=== PATIENT | female | born 1955 | race Caucasian/White ===

== ENCOUNTER 2017-10-29 13:16 | Day surgery (SDC) | END 2017-10-29 17:35 | disposition home or self-care (01) ==

== ENCOUNTER 2018-10-28 05:48 | Inpatient (IN) | payer OTHER ==
[2018-10-20 11:37] VITALS: Ht 162.6 cm; Wt 81.9 kg
[~2018-10-28] VITALS: Ht 162.6 cm; Wt 81.9 kg
[2018-10-28] VITALS (27 sets, daily range): BP systolic 119–144; BP diastolic 61–80; PULSE 74–88; RESP 17–26
--- NOTE | 2018-10-28 05:43 | HPN ---
Date/Time of Note Date/Time of Note DATE: 10/28/18 TIME: 05:43 Interval H&P Admission Note Pt. seen H&P reviewed: No system changes SANDY SOLANO MD Oct 28, 2018 05:43
--- NOTE | 2018-10-28 05:45 | OPR ---
Date/Time of Note Date/Time of Note DATE: 10/28/18 TIME: 05:43 Operative Report Procedure Date: Oct 28, 2018 Preoperative Diagnosis Right hip primary arthritis Postoperative Diagnosis Right hip primary arthritis Operation/Procedure Performed 1. Right total hip arthroplasty 2. Injection of PRP Surgeon see signature line [employer] Officer None Anesthesia Type: general Estimated Blood Loss: 250 - 300 ml's Transfusion none Specimen None Grafts/Implants See op note Complications none Pt Condition Post Procedure: stable Disposition: PACU Procedure Description PROCEDURE IN DETAIL: Following the administration of general endotracheal anesth esia supplemented with a spinal anesthetic, the patient was placed in the supine position. The antecubital fossa on the right was prepped and 60 cc of blood were aspirated. Under sterile conditions, the blood was passed off to the product representative from the company who prepared the PRP solution. The right lower extremity was then prepped and draped in the usual sterile fashion. A pharmacy buyer radiograph was obtained for preliminary limb length and femoral size as well as acetabular size. A lateral incision was then made exposing the tensor fascia the fascia was incised the tensor was retracted laterally and the vessels were cauterized. The anterior capsule was then identified and prepared. A capsulectomy was then performed and the femoral head was then evaluated. Severe arthritic changes were noted. A femoral head cut was then made in the appropriate degree of version and inclination. The acetabulum was then exposed and a capsulectomy and labrectomy were completed. The central portion was then entered and serially reamed up to the 47 mm size. A Depuy [employer] cup which was 48 mm, with a standard liner was then fit into position with solid fixation. A 30 mm screw was used for additional fixation. Attention was then directed to the femur, the femur was exposed and prepared. The canal was entered and serially reamed up to the size 2. The femoral canal was then thoroughly irrigated and the PRP solution was then instilled into the femoral canal. A size 2 Depuy Actis stem was then inserted with solid fixation. A 32 mm, +1.5 mm femoral head, which was ceramic was then inserted. The leg was taken through full range of motion with no evident instability. In addition, radiographs revealed excellent position with reproduction of the limb lengths within a millimeter. The wound was irrigated thoroughly. The wound was then closed in layers and a Prenio for the final cover. This was watertight. Estimated blood loss was procedure was 300 cc. Postoperative radiographs will be obtained in the recovery room. SANDY SOLANO MD Oct 28, 2018 05:45
[~2018-10-28 05:48] MED LIST: ACET500C5 PO; ASPIRIN; CYCL5TAB PO; DICLOFENAC PO; LISINOPRIL PO
[2018-10-28] MEDS ORDERED: DEXAMETHASONE 1 MG TAB PO SCH ×2 (06:33→07:30)
[2018-10-28] MEDS ORDERED: GABAPENTIN 300 MG CAP PO SCH ×3 (06:34→21:00)
[2018-10-28] MEDS ORDERED: LISI-313 PO (06:53)
[2018-10-28] MEDS ORDERED: DICL75TA2 PO (06:53)
[2018-10-28] MEDS ORDERED: CA CHLORIDE 10% 10 ML SYRINGE ONE (06:54)
[2018-10-28] MEDS ORDERED: ACET-141 PO (06:54)
[2018-10-28] MEDS ORDERED: THROMBIN (BOVINE) 5,000 UNIT VIAL TP ONE (06:54)
[2018-10-28] MEDS ORDERED: CYCL10TA7 PO (06:54)
--- NOTE | 2018-10-28 06:59 | PREAC ---
Date/Time of Note Date/Time of Note DATE: 10/28/18 TIME: 06:58 Anesthesia Eval and Record Evaluation Time Pre-Procedure Interview DATE: 10/28/18 TIME: 06:58 Age 63 Sex female NPO: 8 hrs Preoperative diagnosis RIGHT HIP PRIMARY OA Planned procedure RIGHT TIFFANY Past Medical History Past Medical History: Includes Cardio: HTN GI: Obesity Surgery & Anesthesia Issues No known issue Meds Anticoagulation: No Beta Remington within 24 hr: No Reason Beta Remington not given: Pt. not on B-Remington Reported Medications Cyclobenzaprine Hcl* (Cyclobenzaprine Hcl*) 10 Mg Tablet, 10 MG PO QHS PRN for MUSCLE SPASMS, #60 TAB 10/28/18 Acetaminophen* (Acetaminophen*) 500 MG Extra Strength Tablet, 500 MG PO DAILY PRN for PAIN AND OR ELEVATED TEMP, TAB 10/28/18 Diclofenac Sodium* (Diclofenac Sodium*) 75 Mg Tablet.dr, 75 MG PO BID, #60 TAB 10/28/18 Lisinopril* (Lisinopril*) 5 Mg Tablet, 5 MG PO DAILY, #30 TAB 10/28/18 Discontinued Reported Medications Acetaminophen* (Tylophen*) 500 Mg Capsule, 500 MG PO Q6H PRN for PAIN, TAB 10/20/18 Cyclobenzaprine Hcl* (Cyclobenzaprine Hcl*) 5 Mg Tablet, 5 MG PO TID, #90 TAB 10/20/18 [Aspirin] No Conflict Check 10/29/17 [Diclofenac] No Conflict Check, 75 MG PO 10/29/17 [Lisinopril] No Conflict Check, 2.5 MG PO DAILY 10/29/17 Current Medications Cefazolin Sodium/ Dextrose 50 ml @ 100 mls/hr PRE-OP IVPB ; Start 10/28/18 at 07:30; Stop 10/28/18 at 16:00 Tranexamic Acid 100 ml @ 200 mls/hr Pre-op IVPB ; Start 10/28/18 at 07:30; Stop 10/28/18 at 16:00 Sodium Chloride/ Tranexamic Acid INTRA-OP IRR ; Start 10/28/18 at 07:30; Stop 10/28/18 at 16:00 Bupivacaine HCl/ Morphine Sulfate/ Epinephrine/ Ketorolac Tromethamine/ Clonidine/Sodium Chloride/ Vancomycin HCl INTRA-OP IRR ; Start 10/28/18 at 07:30; Stop 10/28/18 at 16:00 Gabapentin (Neurontin) 300 mg ONCE PO Last administered on 10/28/18at 06:39; Admin Dose 300 MG; Start 10/28/18 at 06:34; Stop 10/28/18 at 07:20 Meds reviewed: Yes Allergies Coded Allergies: No Known Allergy (Unverified , 10/28/18) Allergies Reviewed: Yes Labs/Studies Labs Reviewed: Reviewed by anesthesiologist test: N/A Studies: ECG (NL), CXR (NAPD) Pre-procedure Exam Last vitals Vital Signs Date Temp Pulse Resp B/P (MAP) Pulse Ox O2 O2 Flow FiO2 Time Delivery Rate 10/28/18 97.6 76 18 144/80 97 Room Air 06:42 (101) Airway: Adequate mouth opening, Adequate thyromental dist Mallampati: Mallampati II Teeth: Normal Lung: Normal Heart: Normal ASA Physical Status ASA physical status: 2 Emergency: None Planned Anesthetic General/MAC: ETT Neuraxial: Spinal Planned Pain Management Sub-arachniod narcotics, Parenteral pain med Pre-operative Attestations Prior to commencing anesthesia and surgery, the patient was re-evaluated, there was verification of: *The patient's identity *The results of appropriate recent lab work and preoperative vital signs *The above evaluation not changing prior to induction *Anesthetic plan, risk benefits, alternative and complications discussed with patient/family; questions answered; patient/family understands, accepts and wishes to proceed. Bridger Cervantes M.D. Oct 28, 2018 06:59
[2018-10-28] MEDS ORDERED: HYDROmorphONE 1 MG/5 ML IV SYRINGE IV PRN ×3 (07:00)
[2018-10-28] MEDS ORDERED: LABETALOL HCL 20MG INJ IV PRN (07:00)
[2018-10-28] MEDS ORDERED: TRIMETHOBENZAMIDE 100 MG/ML VIAL IM PRN (07:00)
[2018-10-28] MEDS ORDERED: ONDANSETRON 4 MG INJ IV PRN ×2 (07:00→09:00)
[2018-10-28] MEDS ORDERED: OXYCODONE/ACETAMINOPHEN (5/325) TAB PO PRN ×2 (07:00)
[2018-10-28] MEDS ORDERED: FENTAnyl 50 MCG/ML VIAL IV PRN ×3 (07:00)
[2018-10-28] MEDS ORDERED: MEPERIDINE 25 MG INJ IV PRN (07:00)
[2018-10-28] MEDS ORDERED: MIDAZOLAM 1 MG/ML 2 ML INJ IV PRN (07:00)
[2018-10-28] MEDS ORDERED: ALBUTEROL 0.083% (NEB) 2.5 MG/3 ML AMP HHN PRN (07:00)
[2018-10-28] MEDS ORDERED: DIPHENHYDRAMINE 50 MG INJ IV PRN ×2 (07:00→09:00)
[2018-10-28] MEDS ORDERED: IPRATROPIUM (NEB) 0.5 MG/2.5 ML AMP HHN PRN (07:00)
[2018-10-28] MEDS ORDERED: EPHEDrine SULFATE 50 MG/5 ML SYG IV PRN (07:00)
[2018-10-28] MEDS ORDERED: hydrALAzine 20 MG INJ IV PRN (07:00)
[2018-10-28] MEDS ORDERED: ONDANSETRON 4 MG INJ ONE (07:01)
[2018-10-28] MEDS ORDERED: PROPOFOL 20 ML ONE (07:01)
[2018-10-28] MEDS ORDERED: FENTAnyl 50 MCG/ML VIAL ONE ×2 (07:01→08:14)
[2018-10-28] MEDS ORDERED: CEFAZOLIN 1 GM INJ ONE (07:01)
[2018-10-28] MEDS ORDERED: GLYCOPYRROLATE 0.4 MG INJ ONE (07:01)
[2018-10-28] MEDS ORDERED: MIDAZOLAM 1 MG/ML 2 ML INJ ONE (07:01)
[2018-10-28] MEDS ORDERED: DEXAMETHASONE 4 MG/ML 5 ML INJ ONE (07:01)
[2018-10-28] MEDS ORDERED: ROCURONIUM 50 MG INJ ONE (07:01)
[2018-10-28] MEDS ORDERED: morphine SULFATE/PF (10 MG/10 ML) INJ ONE (07:02)
[2018-10-28] MEDS ORDERED: CEFAZOLIN 2 GM/50 ML (PMX) 50 ML IVPB SCH (07:30)
[2018-10-28] MEDS ORDERED: SOD CHLORIDE 0.9% 100 ML, TRANEXAMIC ACID 3,000 MG IRR SCH ×2 (07:30)
[2018-10-28] MEDS ORDERED: BUPIVACAINE 0.5% (SDV) 30 ML, morphine SULFATE (PF) 8 MG, EPINEPHrine 0.3 MG, KETOROLAC... IRR SCH ×7 (07:30)
[2018-10-28] MEDS: TRANEXAMIC ACID 1GM/100ML(PMX) 100 ML IVPB SCH ×2 (08:22→08:47)
[2018-10-28] MEDS ORDERED: MAGNESIUM HYDROXIDE 30ML CUP PO PRN (09:00)
[2018-10-28] MEDS ORDERED: CYCLOBENZAPRINE 10 MG TAB PO PRN (09:00)
[2018-10-28] MEDS ORDERED: NACL 0.9% 3 ML SYG IV SCH (09:00)
[2018-10-28] MEDS ORDERED: CEFAZOLIN 1 GM/50 ML (PMX) 50 ML IVPB SCH (09:00)
[2018-10-28] MEDS ORDERED: oxyCODONE 5 MG TAB PO PRN ×3 (09:00)
[2018-10-28] MEDS ORDERED: HYDROmorphONE 1 MG/ML SYG IV PRN (09:00)
[2018-10-28] MEDS ORDERED: ZOLPIDEM 5 MG TAB PO PRN (09:00)
--- NOTE | 2018-10-28 09:00 | PDOCDIS ---
Discharge Instructions DIAGNOSIS Discharge Diagnosis Hip arthritis CONDITION [id number] Patient Condition: [id number] Good HOME CARE INSTRUCTIONS: [id number] Diet Instructions: [id number] Regular ACTIVITY: [id number] Activity Restrictions: [id number] Slowly Increase Activity Keep Limb Elevated [id number] Bathing Restrictions: [id number] Shower FOLLOW UP/APPOINTMENTS Follow-up Plan 2 weeks SCHOOL/WORK RELEASE May return to School/Work with: With Restrictions School/Work Release Comment: No hip extension for 3 months SANDY SOLANO MD Oct 28, 2018 09:00
--- NOTE | 2018-10-28 09:16 | PAC ---
Date/Time of Note Date/Time of Note DATE: 10/28/18 TIME: 09:16 Post-Anesthesia Notes Post-Anesthesia Note Last documented vital signs Vital Signs Date Temp Pulse Resp B/P (MAP) Pulse Ox O2 O2 Flow FiO2 Time Delivery Rate 10/28/18B 97.6 76 18 144/80 97 Room Air 09:16 (101) Activity: WNL Respiratory function: WNL Cardiovascular function: WNL Mental status: Baseline Pain reasonably controlled: Yes Hydration appropriate: Yes Nausea/Vomiting absent: Yes Bridger Cervantes M.D. Oct 28, 2018 09:16
[2018-10-28] MEDS: ACETAMINOPHEN 1000MG/100ML IV 100 ML IVPB SCH ×3 (09:57→23:59)
[2018-10-28] MEDS: LISINOPRIL 5 MG TAB PO SCH (09:58)
[2018-10-28] MEDS: SENNA/DOCUSATE NA (8.6MG/50MG) TAB PO SCH ×2 (09:58→20:29)
[2018-10-28] MEDS: LACTATED RINGER'S 1,000 ML IV SCH ×2 (11:01→14:12)
[2018-10-28] MEDS: DEXAMETHASONE 2 MG TAB PO SCH ×3 (12:00→23:58)
[2018-10-28] MEDS: CEFAZOLIN 1 GM/50 ML (PMX) 50 ML IVPB SCH ×2 (15:51→23:58)
[2018-10-29] MEDS: LACTATED RINGER'S 1,000 ML IV SCH ×2 (00:50→14:57)
[2018-10-29 02:32] VITALS: BP 101/58; PULSE 88; RESP 19
[2018-10-29] MEDS: CEFAZOLIN 1 GM/50 ML (PMX) 50 ML IVPB SCH (05:34)
[2018-10-29] MEDS: DEXAMETHASONE 2 MG TAB PO SCH (05:35)
--- NOTE | 2018-10-29 05:38 | PN ---
Date/Time of Note Date/Time of Note DATE: 10/29/18 TIME: 05:38 Subjective Awake and alert with minimal pain this morning Objective Vitals Vital Signs Date Temp Pulse Resp B/P (MAP) Pulse Ox O2 O2 Flow FiO2 Time Delivery Rate 10/29/18 98.4 88 19 101/58 100 02:32 (72) 10/28/18 Nasal 2.0 14:00 Cannula Intake and Output 10/28/18 10/28/18 10/29/18 1515:00 23:00 07:00 IntakeIntake Total 2660 ml 450 ml 850 ml OutputOutput Total 600 ml 1000 ml BalanceBalance 2060 ml -550 ml 850 ml Wound is clean and dry. She is neurologically intact. There are no signs of DVT. Results Result Diagram: 10/28/18 09 Medications Medications Current Medications Cyclobenzaprine HCl (Flexeril) 10 mg QHS PRN PO MUSCLE SPASMS; Start 10/28/18 at 09:00 Lisinopril (Zestril) 5 mg DAILY PO Last administered on 10/28/18at 09:58; Admin Dose 5 MG; Start 10/28/18 at 09:00 Lactated Ringer's 1,000 ml @ 100 mls/hr Q10H IV Last administered on 10/29/18at 00:50; Admin Dose 100 MLS/HR; Start 10/28/18 at 08:57 Senna/Docusate Sodium (Senokot-S) 1 tab BID PO Last administered on 10/28/18at 20:29; Admin Dose 1 TAB; Start 10/28/18 at 09:00 Simethicone (Mylicon) 80 mg TID PRN PO .GAS; Start 10/28/18 at 09:00 Magnesium Hydroxide (Milk Of Mag) 30 ml BID PRN PO .CONSTIPATION; Start 10/28/18 at 09:00 Magnesium Hydroxide (Milk Of Mag) 30 ml HS PO ; Start 10/30/18 at 21:00 Dexamethasone (Decadron) 2 mg Q6 PO Last administered on 10/29/18at 05:35; Admin Dose 2 MG; Start 10/28/18 at 12:00; Stop 10/29/18 at 06:01 Gabapentin (Neurontin) 300 mg HS PO Last administered on 10/28/18at 20:29; Admin Dose 300 MG; Start 10/28/18 at 21:00 Oxycodone HCl (Roxicodone) 15 mg Q4H PRN PO .PAIN; Start 10/28/18 at 09:00 Oxycodone HCl (Roxicodone) 10 mg Q4H PRN PO .PAIN; Start 10/28/18 at 09:00 Oxycodone HCl (Roxicodone) 5 mg Q4H PRN PO .PAIN Last administered on 10/29/18at 05:35; Admin Dose 5 MG; Start 10/28/18 at 09:00 Hydromorphone HCl (Dilaudid) 1 mg Q4H PRN IV .BREAKTHROUGH PAIN; Start 10/28/18 at 09:00 Ondansetron HCl (Zofran Inj) 4 mg Q6H PRN IV NAUSEA/VOMITING; Start 10/28/18 at 09:00 Diphenhydramine HCl (Benadryl) 25 mg Q6H PRN IV .PRURITUS; Start 10/28/18 at 09:00 Zolpidem Tartrate (Ambien) 10 mg HS PRN PO .INSOMNIA; Start 10/28/18 at 09:00 IV Flush (NS 3 ml) 3 ml per protocol IV ; Start 10/28/18 at 09:00 Aspirin (Ecotrin) 325 mg DAILY PO ; Start 10/29/18 at 09:00 Cefazolin Sodium 50 ml @ 100 mls/hr Q8H IVPB Last administered on 10/29/18at 05:34; Admin Dose 100 MLS/HR; Start 10/28/18 at 15:00; Stop 10/29/18 at 07:29 VTE Prophylaxis Risk score (from Nsg)>0 risk: 7 SCD applied (from Nsg): Yes Lines/Catheters IV Catheter Type: Saline Lock Santana in Place: No Assessment/Plan Assessment/Plan Assessment: Status post total hip replacement Plan: Begin physical therapy this morning and discharged following clearance by physical therapy SANDY SOLANO MD Oct 29, 2018 05:38
--- NOTE | 2018-10-29 05:39 | DS ---
Date/Time of Note Date/Time of Note DATE: 10/29/18 TIME: 05:39 Discharge Summary Admission/Discharge Info Admit Date/Time Oct 28, 2018 at 05:48 Discharge Date/Time 10/29/2018 Discharge Diagnosis Hip arthritis Patient Condition: Good Hospital Course Admitted and underwent uncomplicated procedure. Postop day 1 discharge home after PT Home Meds Reported Medications Cyclobenzaprine Hcl* (Cyclobenzaprine Hcl*) 10 Mg Tablet, 10 MG PO QHS PRN for MUSCLE SPASMS, #60 TAB 10/28/18 Acetaminophen* (Acetaminophen*) 500 MG Extra Strength Tablet, 500 MG PO DAILY PRN for PAIN AND OR ELEVATED TEMP, TAB 10/28/18 Diclofenac Sodium* (Diclofenac Sodium*) 75 Mg Tablet.dr, 75 MG PO BID, #60 TAB 10/28/18 Lisinopril* (Lisinopril*) 5 Mg Tablet, 5 MG PO DAILY, #30 TAB 10/28/18 Discontinued Reported Medications Acetaminophen* (Tylophen*) 500 Mg Capsule, 500 MG PO Q6H PRN for PAIN, TAB 10/20/18 Cyclobenzaprine Hcl* (Cyclobenzaprine Hcl*) 5 Mg Tablet, 5 MG PO TID, #90 TAB 10/20/18 [Aspirin] No Conflict Check 10/29/17 [Diclofenac] No Conflict Check, 75 MG PO 10/29/17 [Lisinopril] No Conflict Check, 2.5 MG PO DAILY 10/29/17 Follow-up Plan 2 weeks Primary Care Provider Not On Staff Doctor Pending Labs Laboratory Tests Test 10/28/18 09:25 White Blood Count 16.6 10^3/ul (4.8-10.8) Red Blood Count 3.81 10^6/ul (4.20-5.40) Hemoglobin 10.6 g/dl (12.0-16.0) Hematocrit 33.6 % (37.0-47.0) Mean Corpuscular Volume 88.2 fl (82.0-101.0) Mean Corpuscular Hemoglobin 27.8 pg (29.0-33.0) Mean Corpuscular Hemoglobin Concent 31.5 g/dl (32.0-37.0) Red Cell Distribution Width 14.2 % (11.5-14.5) Platelet Count 198 10^3/UL (140-415) Mean Platelet Volume 10.0 fl (7.4-10.4) Immature Granulocytes % 1.200 % (0.001-0.429) Neutrophils % 82.6 % (39.0-77.0) Lymphocytes % 13.4 % (15.0-51.0) Monocytes % 2.2 % (0.0-11.0) Eosinophils % 0.2 % (0.0-7.0) Basophils % 0.4 % (0.0-2.0) Nucleated Red Blood Cells % 0.0 /100WBC (0.0-0.0) Immature Granulocytes # 0.200 10^3/ul (0.0-0.031) Neutrophils # 13.7 10^3/ul (1.6-7.5) Lymphocytes # 2.2 10^3/ul (0.8-2.9) Monocytes # 0.4 10^3/ul (0.3-0.9) Eosinophils # 0.0 10^3/ul (0.0-0.5) Basophils # 0.1 10^3/ul (0.0-0.1) Nucleated Red Blood Cells # 0.0 10^3/ul (0.0-0.0) CBC Results Faxed/Phoned SANDY SOLANO MD Oct 29, 2018 05:39
[2018-10-29 08:03] VITALS: BP 127/70; RESP 18
[2018-10-29] MEDS: SENNA/DOCUSATE NA (8.6MG/50MG) TAB PO SCH (08:36)
[2018-10-29] MEDS: LISINOPRIL 5 MG TAB PO SCH (08:37)
[2018-10-29] MEDS ORDERED: ASPIRIN (EC) 325 MG TAB PO SCH (09:00)
[2018-10-30] MEDS ORDERED: MAGNESIUM HYDROXIDE 30ML CUP PO SCH (21:00)
== END 2018-10-29 17:20 | disposition home or self-care (01) | DRG 470 ==
LOC: REC 05:48 → MS1 10:36
PROVIDERS: ADMIT Orthopaedic Surgery; ATTEND Orthopaedic Surgery
PROC: 0SR904A Replacement of Right Hip Joint with Ceramic on Polyethylene Synthetic Substitute, Uncemented, Open Approach (ICD-10-PCS; principal; 2018-10-28 07:00)
DX: M16.11 Unilateral primary osteoarthritis, right hip (principal); E66.9 Obesity, unspecified; I10 Essential (primary) hypertension; Z68.31 Body mass index [BMI] 31.0-31.9, adult
CPT/HCPCS: 72170; 73530; 85025; 86999; 87086; 88304; 88311; 97110; 97116; 97161; C1713; C1776; J0131; J0690; J1100; J2250; J2274; J2405; J3010; J7120

== ENCOUNTER 2018-11-05 16:20 | Inpatient (IN) | payer OTHER ==
[~2018-11-05] VITALS: Ht 144.8 cm; Wt 80.0 kg
[~2018-11-05 16:20] MED LIST changes: +ACET-141 PO; -ACET500C5 PO; -ASPIRIN; +CYCL10TA7 PO; -CYCL5TAB PO; +DICL75TA2 PO; -DICLOFENAC PO; +LISI-313 PO; -LISINOPRIL PO
[2018-11-05 16:29] VITALS: Ht 144.8 cm; Wt 80.0 kg
--- NOTE | 2018-11-05 19:06 | ERD ---
ER Documentation Chief Complaint Chief Complaint R HIP INCISION RED/D/C & PAINFUL HPI The patient is a 63-year-old female, presenting to the ER because of right hip incision redness, discharge, painful for the last 3 days. She had right hip arthroplasty on October 28, 2018. She denies fever, chills, neck pain, chest pain, dyspnea, abdominal pain, vomiting, dizzy, diarrhea. She does not smoke nor drink Past medical history: Hypertension Past surgical history: ROS All systems reviewed and are negative except as per history of present illness. Medications Home Meds Reported Medications Cyclobenzaprine Hcl* (Cyclobenzaprine Hcl*) 10 Mg Tablet, 10 MG PO QHS PRN for MUSCLE SPASMS, #60 TAB 10/28/18 Diclofenac Sodium* (Diclofenac Sodium*) 75 Mg Tablet.dr, 75 MG PO BID, #60 TAB 10/28/18 Lisinopril* (Lisinopril*) 5 Mg Tablet, 5 MG PO DAILY, #30 TAB 10/28/18 Discontinued Reported Medications Acetaminophen* (Acetaminophen*) 500 MG Extra Strength Tablet, 500 MG PO DAILY PRN for PAIN AND OR ELEVATED TEMP, TAB 10/28/18 Allergies Allergies: Coded Allergies: No Known Allergy (Unverified , 11/05/18) PMhx/Soc History of Surgery: Yes (ONE ) Anesthesia Reaction: No Hx Neurological Disorder: No Hx Respiratory Disorders: No Hx Cardiac Disorders: Yes (HTN) Hx Psychiatric Problems: No Hx Miscellaneous Medical Probl: Yes (OBESITY, OA , HTN , RT HIP PAIN ) Hx Alcohol Use: No Hx Substance Use: No Hx Tobacco Use: No Physical Exam Vitals Vital Signs Date Temp Pulse Resp B/P (MAP) Pulse Ox O2 O2 Flow FiO2 Time Delivery Rate 11/05/18 75 16 131/71 100 Room Air 23:00 (91) 11/05/18 68 16 126/78 100 Room Air 20:00 (94) 11/05/18 99.9 108 18 122/60 99 16:29 (80) Physical Exam Const: No acute distress. Head: Atraumatic. Eyes: Normal Conjunctiva. ENT: Normal External Ears, Nose and Mouth. Neck: Full range of motion. No meningismus. Resp: Clear to auscultation bilaterally. Cardio: Regular rate and rhythm. Abd: Soft, non distended, normal bowel sounds, non tender. Skin: No petechiae or rashes. Back: No midline or flank tenderness. Ext: Right hip incision is erythematous, yellowish discharge, warm to touch, no calf tenderness Neur: Awake and alert. No focal deficit Psych: Normal Mood and Affect. Result Diagram: 11/05/18192311/05/181923 Results 24 hrs Laboratory Tests Test 11/05/18 19:24 11/05/18 19:35 11/05/18 20:37 White Blood Count 10.5 10^3/ul Red Blood Count 3.17 10^6/ul Hemoglobin 8.8 g/dl Hematocrit 28.3 % Mean Corpuscular Volume 89.3 fl Mean Corpuscular Hemoglobin 27.8 pg Mean Corpuscular 31.1 g/dl Hemoglobin Concent Red Cell Distribution Width 14.3 % Platelet Count 319 10^3/UL Mean Platelet Volume 8.9 fl Immature Granulocytes % 1.100 % Neutrophils % 69.5 % Lymphocytes % 19.5 % Monocytes % 8.9 % Eosinophils % 0.6 % Basophils % 0.4 % Nucleated Red Blood Cells % 0.0 /100WBC Immature Granulocytes # 0.110 10^3/ul Neutrophils # 7.3 10^3/ul Lymphocytes # 2.0 10^3/ul Monocytes # 0.9 10^3/ul Eosinophils # 0.1 10^3/ul Basophils # 0.0 10^3/ul Nucleated Red Blood Cells # 0.0 10^3/ul Prothrombin Time 12.8 Sec Prothrombin Time Ratio 1.0 INR International Normalized Ratio 0.95 Activated Partial Thromboplast 32.5 Sec Time Sodium Level 140 mmol/L Potassium Level 4.3 mmol/L Chloride Level 105 mmol/L Carbon Dioxide Level 25 mmol/L Anion Gap 10 Blood Urea Nitrogen 13 mg/dl Creatinine 0.70 mg/dl Est Glomerular Filtrat Rate mL/min > 60 mL/min Glucose Level 106 mg/dl Calcium Level 9.1 mg/dl Total Bilirubin 0.1 mg/dl Direct Bilirubin 0.00 mg/dl Indirect Bilirubin 0.1 mg/dl Aspartate Amino Transf (AST/SGOT) 21 IU/L Alanine 20 IU/L Aminotransferase (ALT/SGPT) Alkaline Phosphatase 102 IU/L Troponin I < 0.012 ng/ml Total Protein 6.8 g/dl Albumin 3.9 g/dl Globulin 2.90 g/dl Albumin/Globulin Ratio 1.34 Lactic Acid Level 1.4 mmol/L Bedside Urine pH (LAB) 5.5 Bedside Urine Protein (LAB) Negative Bedside Urine Glucose (UA) Negative Bedside Urine Ketones (LAB) Negative Bedside Urine Blood Trace-intact Bedside Urine Nitrite (LAB) Negative Bedside Urine Leukocyte Esterase 1+ (L Current Medications Medications Dose Sig/Sunil Start Time Status Last (Trade) Ordered Route PRN Stop Time Admin Dose Reason Admin Vancomycin 250 ml @ ONCE ONCE 11/05/18 DC 11/05/18 HCl 125 mls/hr IVPB 19:30 21:00 11/05/18 21:29 Ceftriaxone 50 ml @ ONCE ONCE 11/05/18 DC 11/05/18 Sodium 100 mls/hr IVPB 19:30 20:29 11/05/18 19:59 10 mg QHS PRN 11/05/18 UNV Cyclobenzapri PO MUSCLE 22:00 ne HCl SPASMS (Flexeril) Lisinopril 5 mg DAILY PO 11/06/18 UNV (Zestril) 09:00 Sodium 1,000 ml @ [id number] IV 11/06/18 UNV Chloride 75 mls/hr 00:00 IV Flush 3 ml PER 11/05/18 UNV (NS 3 ml) PROTOCOL IV 22:00 Ondansetron 4 mg Q6H PRN 11/05/18 UNV HCl (Zofran IV 22:00 Inj) NAUSEA/VOMITI NG 650 mg Q6H PRN 11/05/18 UNV Acetaminophen PO .PAIN 1-3 22:00 (Tylenol OR TEMP Tab) 1 tab Q6H PRN 11/05/18 UNV Acetaminophen PO .MOD PAIN 22:00 / 4-6 Hydrocodone Bitart (Morrill (5/325)) Morphine 2 mg Q4H PRN 11/05/18 UNV Sulfate IV .SEVERE 22:00 (morphine) PAIN 7-10 Docusate 100 mg Q12H PRN 11/05/18 UNV Sodium PO 22:00 (Colace) .CONSTIPATION Bisacodyl 5 mg DAILY PRN 11/05/18 UNV (Dulcolax) PO 22:00 .CONSTIPATION Vancomycin VANCOMYCIN PER 11/05/18 UNV HCl (Vanco PER PHARMACY PROTOCOL XX 22:00 Iv Per Pharmacy) Piperacillin 100 ml @ Q6 IVPB 11/06/18 UNV Sod/ 200 mls/hr 00:00 Tazobactam Sod Procedures/MDM [place] [id number] Radiology Main Line: [phone] DIAGNOSTIC IMAGING REPORT Patient: YADIRA CH : 1955 Age: 63 Sex: F MR #: [id number] DOS: 11/05/18 191 Ordering MD: EUNICE SHIN MD Location: E/R Room/Bed: PROCEDURE: XR Chest. CLINICAL INDICATION: Chest pain TECHNIQUE: Single frontal view of the chest was obtained. COMPARISON: None FINDINGS: The heart is within normal limits. The thoracic aorta is calcified. The lungs are clear. There is no pleural effusion or pneumothorax. RPTAT: AA IMPRESSION: No acute disease. Calcified aorta consistent with atherosclerotic disease. .Aubrey Fallon MD, MD Date Time Electronically viewed and signed by .Aubrey Fallon MD, MD on 11/05/2018 19:42 .S/ CC: EUNICE SHIN MD [phone] MEDICAL MAKING DECISION: The patient is a 63-year-old female, presenting with acute postoperative infection of the right hip incision, acute cystitis. She was treated with vancomycin IV and Rocephin IV with good response The differential diagnoses considered include but are not limited to cellulitis, abscess, seroma, DVT Consultation: I discussed the patient with the orthopedist Dr. Velasco at 7 :30 pm, who was special education itinerant teacher for her surgeon Dr Osborne, who was made aware of the lab, the finding, the patient condition Departure Diagnosis: Primary Impression: Postoperative infection Additional Impression: Anemia Condition: Stable Comments I discussed the findings with the patient. I discussed the patient with the hospitalist Dr Camacho at 9:20 p who was made aware of the lab, the treatment, the patient condition. The patient is admitted to [facility] Disclaimer: Inadvertent spelling and grammatical errors are likely due to EHR/dictation software use and do not reflect on the overall quality of patient care. Also, please note that the electronic time recorded on this note does not necessarily reflect the actual time of the patient encounter. EUNICE SHIN MD Nov 05, 2018 19:06
[2018-11-05] MEDS ORDERED: VANCOMYCIN 1 GM (PMX) 250 ML IVPB ONE (19:30)
[2018-11-05] MEDS ORDERED: CEFTRIAXONE 2 GM/50 ML (PMX) 50 ML IVPB ONE (19:30)
--- NOTE | 2018-11-05 21:46 | HP ---
Date/Time of Note Date/Time of Note DATE: 11/05/18 TIME: 21:46 Assessment/Plan VTE Prophylaxis SCD applied (from Nsg): Yes Pharmacological prophylaxis: NA/contraindicated Pharm contraindication: low risk/ambulating Lines/Catheters IV Catheter Type (from Nrsg): Saline Lock Assessment/Plan Hospital Course This is a 63-year-old female being admitted to the [facility] floor for: #1 postop infection: Redness and yellow discharge noted at the right hip incision site. patient had a right total hip arthroplasty on 10/28/2018. Afebrile and has a normal white blood cell count. At the current time we will put the patient on vancomycin and Zosyn. The on-call doctor for was spoken to and they will consult on the patient. Will obtain x-ray of the right hip. Await culture results. #2 right hip osteoarthritis: Status post right total hip replacement on 10/28/2018. Please see #1. #3 hypertension: Continue lisinopril #4 obesity: Encouraged diet and lifestyle modification, further workup as an outpatient #5 DVT GI prophylaxis: SCDs, no GI prophylaxis indicated Further treatment strategy will be implemented as per the clinical course Result Diagram: 11/05/184 11/05/184 Results 24hrs Laboratory Tests Test 11/05/18 19:24 11/05/18 19:35 11/05/18 20:37 White Blood Count 10.5 Red Blood Count 3.17 L Hemoglobin 8.8 L Hematocrit 28.3 L Mean Corpuscular Volume 89.3 Mean Corpuscular Hemoglobin 27.8 L Mean Corpuscular 31.1 L Hemoglobin Concent Red Cell Distribution Width 14.3 Platelet Count 319 # Mean Platelet Volume 8.9 Immature Granulocytes % 1.100 H Neutrophils % 69.5 Lymphocytes % 19.5 Monocytes % 8.9 Eosinophils % 0.6 Basophils % 0.4 Nucleated Red Blood Cells % 0.0 Immature Granulocytes # 0.110 H Neutrophils # 7.3 Lymphocytes # 2.0 Monocytes # 0.9 Eosinophils # 0.1 Basophils # 0.0 Nucleated Red Blood Cells # 0.0 Prothrombin Time 12.8 Prothrombin Time Ratio 1.0 INR International 0.95 Normalized Ratio Activated Partial Thromboplast 32.5 Time Sodium Level 140 Potassium Level 4.3 Chloride Level 105 Carbon Dioxide Level 25 Anion Gap 10 Blood Urea Nitrogen 13 Creatinine 0.70 Est Glomerular Filtrat > 60 Rate mL/min Glucose Level 106 Calcium Level 9.1 Total Bilirubin 0.1 L Direct Bilirubin 0.00 Indirect Bilirubin 0.1 Aspartate Amino Transf (AST/SGOT) 21 Alanine 20 Aminotransferase (ALT/SGPT) Alkaline Phosphatase 102 Troponin I < 0.012 Total Protein 6.8 Albumin 3.9 Globulin 2.90 Albumin/Globulin Ratio 1.34 Lactic Acid Level 1.4 Bedside Urine pH (LAB) 5.5 Bedside Urine Protein (LAB) Negative Bedside Urine Glucose (UA) Negative Bedside Urine Ketones (LAB) Negative Bedside Urine Blood Trace-intact H Bedside Urine Nitrite (LAB) Negative Bedside Urine Leukocyte Esterase 1+ H (L HPI/ROS Admit Date/Time Admit Date/Time Hx of Present Illness Chief complaint: Right hip incision redness and discharge times 3 days This is a 63-year-old female status post right total hip arthroplasty on 10/28 who presented to the emergency department complaining of right hip incision pain and drainage times 3 days. Patient reports that she started noticing yellow discharge come out of her right hip incision. She also noticed being mildly painful to touch and redness. She denies any fevers. Denies any chest pain nausea vomiting or diarrhea. She denies any worsening of her right hip pain aside from her normal postop pain. Her surgery was performed by Dr. Terrance pemberton Allergies: NKDA Medications: See FEDERICA GUADALUPE Const: As per HPI Eyes : No pain discharge or redness or change in visual acuity ENT: No pain, sore throat, congestion, congestion, dysphagia or discharge Respiratory: No shortness of breath, cough, sputum, wheezing, or pleuritic pain Cardiovascular: No chest pain, palpitation, PND, or edema GI : no change in appetite, abdominal pain, nausea, vomiting, diarrhea, constipation, or change in the color his stool Genitourinary: No dysuria, hematuria, flank pain , discharge or CVA tenderness Musculoskeletal: As per HPI Skin: As per HPI Neuro: No headache, dizziness, syncope, seizure, focal weakness Endocrine: No polyuria, polydipsia, temperature intolerance Psych: No hallucination, depression, anxiety or suicidal ideation PMH/Family/Social Past Medical History Hypertension, arthritis Coded Allergies: No Known Allergy (Unverified , 11/05/18) Past Surgical History Right total hip arthroplasty on 10/28/2018, x1 Social History Smoking Status: Never smoker Exam/Review of Systems Vital Signs Vitals Vital Signs Date Temp Pulse Resp B/P (MAP) Pulse Ox O2 O2 Flow FiO2 Time Delivery Rate 11/05/18 68 16 126/78 100 Room Air 20:00 (94) 11/05/18 99.9 16:29 Exam Exam General: Patient is a pleasant female currently lying in bed in no acute distress HEENT: Atraumatic, normocephalic. The pupils are equal, round and reactive. Extraocular motor are intact Neck: Supple with full range of motion. No rigidity or meningismus Chest: Nontender Lungs: Clear to auscultation bilaterally no crackles rales or wheezing Heart: Normal S1-S2, Regular rhythm and rate. Abdomen: Obese, soft , nontender, nondistended , bowel sounds are present. No guarding no rebound tenderness , No masses or organomegaly. No costovertebral temporal angle mass Extremities: Normal to inspection, no edema no cyanosis Skin: Right anterior hip incision: Mild drainage noted, mild erythema, nontender to touch Neurologic: Normal mental status, speech normal, cranial nerves II through XII are intact, motor and sensory are intact, Additional Comments PROCEDURE: XR Chest. CLINICAL INDICATION: Chest pain TECHNIQUE: Single frontal view of the chest was obtained. COMPARISON: None FINDINGS: The heart is within normal limits. The thoracic aorta is calcified. The lungs are clear. There is no pleural effusion or pneumothorax. RPTAT: AA IMPRESSION: No acute disease. Calcified aorta consistent with atherosclerotic disease. .Aubrey Fallon MD, MD Date Time Electronically viewed and signed by .Aubrey Fallon MD, on 11/05/2018 19:42 .S/ CC: EUNICE SHIN MD [id number] ROBSON MEDEROS Nov 05, 2018 21:46
[2018-11-05] MEDS ORDERED: BISACODYL (EC) 5 MG TAB PO PRN (22:00)
[2018-11-05] MEDS ORDERED: CYCLOBENZAPRINE 10 MG TAB PO PRN (22:00)
[2018-11-05] MEDS ORDERED: DOCUSATE SODIUM 100 MG CAP PO PRN (22:00)
[2018-11-05] MEDS ORDERED: NACL 0.9% 3 ML SYG IV SCH (22:00)
[2018-11-05] MEDS ORDERED: VANCOMYCIN IV PER PHARMACY XX SCH (22:00)
[2018-11-05] MEDS ORDERED: ACETAMINOPHEN 325 MG TAB PO PRN (22:00)
[2018-11-05] MEDS ORDERED: ONDANSETRON 4 MG INJ IV PRN (22:00)
[2018-11-05] MEDS ORDERED: morphine 2 MG INJ IV PRN (22:00)
[2018-11-06] VITALS: BP 139/74; PULSE 88; RESP 20
[2018-11-06] MEDS: SOD CHLORIDE 0.9% 1,000 ML IV SCH ×2 (00:46→13:48)
[2018-11-06] MEDS: PIPER-TAZO 3.375 GM IV (PMX) 100 ML IVPB SCH ×3 (05:31→22:03)
--- NOTE | 2018-11-06 07:05 | PN ---
Date/Time of Note Date/Time of Note DATE: 11/06/18 TIME: 07:03 Subjective As noted in the initial history, the patient started to experience some drainage and increasing pain in the wound over the last 3-4 days. She denies fevers chills or sweats. She has been bathing on a regular basis. Objective Vitals Vital Signs Date Temp Pulse Resp B/P (MAP) Pulse Ox O2 O2 Flow FiO2 Time Delivery Rate 11/06/18 98.6 88 20 139/74 99 00:00 (95) 11/05/18 Room Air 23:46 Intake and Output 11/05/18 11/05/18 11/06/18 1515:00 23:00 07:00 IntakeIntake Total 420 ml BalanceBalance 420 ml The dressing was removed and the wound is for the most part well healed proximally and distally. In the midportion, there is an area of slight erythema and some mild superficial appearing drainage. On palpation, there is no significant warmth there does not appear to be any significant collection. She has been ambulating without pain. On expressing around the area there was only some very superficial drainage and this was cleared. Otherwise, she has no signs of DVT she has no significant distal swelling she can do a straight leg raise no pain. Results Result Diagram: 11/06/18 0438 11/06/18 0438 Medications Medications Current Medications Cyclobenzaprine HCl (Flexeril) 10 mg QHS PRN PO MUSCLE SPASMS; Start 11/05/18 at 22:00 Lisinopril (Zestril) 5 mg DAILY PO ; Start 11/06/18 at 09:00 Sodium Chloride 1,000 ml @ 75 mls/hr [id number] IV Last administered on 11/06/18at 00:46; Admin Dose 75 MLS/HR; Start 11/06/18 at 00:00 IV Flush (NS 3 ml) 3 ml PER PROTOCOL IV ; Start 11/05/18 at 22:00 Ondansetron HCl (Zofran Inj) 4 mg Q6H PRN IV NAUSEA/VOMITING; Start 11/05/18 at 22:00 Acetaminophen (Tylenol Tab) 650 mg Q6H PRN PO .PAIN 1-3 OR TEMP; Start 11/05/18 at 22:00 Acetaminophen/ Hydrocodone Bitart ([place] (5/325)) 1 tab Q6H PRN PO .MOD PAIN 4- 6; Start 11/05/18 at 22:00 Morphine Sulfate (morphine) 2 mg Q4H PRN IV .SEVERE PAIN 7-10 Last administered on 11/06/18at 00:47; Admin Dose 2 MG; Start 11/05/18 at 22:00 Docusate Sodium (Colace) 100 mg Q12H PRN PO .CONSTIPATION; Start 11/05/18 at 22:00 Bisacodyl (Dulcolax) 5 mg DAILY PRN PO .CONSTIPATION; Start 11/05/18 at 22:00 Vancomycin HCl (Vanco Iv Per Pharmacy) VANCOMYCIN PER PHARMACY PER PROTOCOL XX ; Start 11/05/18 at 22:00 Piperacillin Sod/ Tazobactam Sod 100 ml @ 200 mls/hr Q8 IVPB Last administered on 11/06/18at 05:31; Admin Dose 200 MLS/HR; Start 11/06/18 at 06:00 Vancomycin HCl 250 ml @ 125 mls/hr Q24H IVPB ; Start 11/06/18 at 18:00 VTE Prophylaxis SCD applied (from Nsg): Yes Lines/Catheters IV Catheter Type: Saline Lock Santana in Place: No Assessment/Plan Assessment/Plan Assessment: Status post total hip replacement with mild drainage in what appears to be a superficial wound infection. Plan: I would agree with 48 hours of intravenous antibiotics then transition to an oral antibiotic if her situation continues to improve. I have ordered twice daily dressing changes to the area and will reevaluate her this afternoon. SANDY SOLANO MD Nov 06, 2018 07:05
[2018-11-06 07:41] VITALS: BP 123/60; PULSE 60; RESP 18
[2018-11-06] MEDS: LISINOPRIL 5 MG TAB PO SCH (08:37)
[2018-11-06] MEDS: HYDROCODONE/APAP (5/325) TAB PO PRN (13:48)
[2018-11-06 14:28] VITALS: BP 128/66; PULSE 70; RESP 18
--- NOTE | 2018-11-06 14:31 | PN ---
Date/Time of Note Date/Time of Note DATE: 11/06/18 TIME: 14:21 Assessment/Plan VTE Prophylaxis Risk score (from Ns)>0 risk: 3 SCD applied (from Ns): Yes Pharmacological prophylaxis: LMWH Lines/Catheters IV Catheter Type (from [facility]): Peripheral IV Urinary Cath still in place: No Assessment/Plan Assessment/Plan 1. Right hip surgical wound infection, on vanco and zosyn, follow up with surgery 2. s/p right total hip replacement on 10/28/2018 3. HTN, controlled 4. Obesity 5. DVT prophylaxis: lovenox Result Diagram: 11/06/18 0438 11/06/18 0438 Results 24hrs Laboratory Tests Test 11/05/18 19:24 11/05/18 19:35 11/05/18 20:37 11/05/18 22:22 White Blood Count 10.5 Red Blood Count 3.17 L Hemoglobin 8.8 L Hematocrit 28.3 L Mean Corpuscular 89.3 Volume Mean Corpuscular 27.8 L Hemoglobin Mean Corpuscular 31.1 L Hemoglobin Concent Red Cell 14.3 Distribution Width Platelet Count 319 # Mean Platelet 8.9 Volume Immature 1.100 H Granulocytes % Neutrophils % 69.5 Lymphocytes % 19.5 Monocytes % 8.9 Eosinophils % 0.6 Basophils % 0.4 Nucleated Red 0.0 Blood Cells % Immature 0.110 H Granulocytes # Neutrophils # 7.3 Lymphocytes # 2.0 Monocytes # 0.9 Eosinophils # 0.1 Basophils # 0.0 Nucleated Red 0.0 Blood Cells # Prothrombin Time 12.8 Prothrombin Time 1.0 Ratio INR International 0.95 Normalized Ratio Activated 32.[address] Time Sodium Level 140 Potassium Level 4.3 Chloride Level 105 Carbon Dioxide 25 Level Anion Gap 10 Blood Urea 13 Nitrogen Creatinine 0.70 Est Glomerular > 60 Filtrat Rate mL/min Glucose Level 106 Calcium Level 9.1 Total Bilirubin 0.1 L Direct Bilirubin 0.00 Indirect Bilirubin 0.1 Aspartate Amino 21 Transf (AST/SGOT) Alanine 20 Aminotransferase ( ALT/SGPT) Alkaline 102 Phosphatase Troponin I < 0.012 Total Protein 6.8 Albumin 3.9 Globulin 2.90 Albumin/Globulin 1.34 Ratio Lactic Acid Level 1.4 1.1 Bedside Urine pH 5.5 (LAB) Bedside Urine Negative Protein (LAB) Bedside Urine Negative Glucose (UA) Bedside Urine Negative Ketones (LAB) Bedside Urine Trace-intact H Blood Bedside Urine Negative Nitrite (LAB) Bedside Urine 1+ H Leukocyte Esterase (L Test 11/06/18 04:38 White Blood Count 9.1 Red Blood Count 2.91 L Hemoglobin 8.0 L Hematocrit 25.7 L Mean Corpuscular 88.3 Volume Mean Corpuscular 27.5 L Hemoglobin Mean Corpuscular 31.1 L Hemoglobin Concent Red Cell 14.5 Distribution Width Platelet Count 307 Mean Platelet 9.7 Volume Immature 0.800 H Granulocytes % Neutrophils % 59.0 Lymphocytes % 28.5 Monocytes % 9.9 Eosinophils % 1.4 Basophils % 0.4 Nucleated Red 0.2 H Blood Cells % Immature 0.070 H Granulocytes # Neutrophils # 5.4 Lymphocytes # 2.6 Monocytes # 0.9 Eosinophils # 0.1 Basophils # 0.0 Nucleated Red 0.0 Blood Cells # Sodium Level 143 Potassium Level 4.1 Chloride Level 107 Carbon Dioxide 25 Level Anion Gap 11 Blood Urea 13 Nitrogen Creatinine 0.69 Est Glomerular > 60 Filtrat Rate mL/min Glucose Level 102 Calcium Level 8.5 Magnesium Level 2.1 Total Bilirubin 0.1 L Direct Bilirubin 0.00 Indirect Bilirubin 0.1 Aspartate Amino 19 Transf (AST/SGOT) Alanine 14 Aminotransferase ( ALT/SGPT) Alkaline 78 Phosphatase Total Protein 5.9 L Albumin 3.3 Globulin 2.60 Albumin/Globulin 1.26 Ratio Subjective 24 Hr Interval Summary Free Text/Dictation no fever or chills. pain from the wound on right hip Exam/Review of Systems Exam Vitals Vital Signs Date Temp Pulse Resp B/P (MAP) Pulse Ox O2 O2 Flow FiO2 Time Delivery Rate 11/06/18 98.2 60 18 123/60 100 Room Air 07:41 (81) Intake and Output 11/05/18 11/05/18 11/06/18 1515:00 23:00 07:00 IntakeIntake Total 420 ml BalanceBalance 420 ml Constitutional: alert, oriented, well developed Psych: no complaints, nl mood/affect Head: normocephalic, atraumatic Eyes: nl conjunctiva, EOMI, nl lids, PERRL ENMT: nl external ears & nose, nl lips & teeth, nl nasal mucosa & septum Neck: supple, non-tender Respiratory: clear to auscultation, normal air movement; No congested cough, No crackles/rales, No diminished breath sounds, No intercostal retraction, No labored breathing, No respirations, No tactile fremitus, No wheezing, No other Cardiovascular: regular rate and rhythm, nl pulses; No bruits, No diastolic murmur, No edema, No gallop, No irregular rhythm, No jugular venous distention (JVD), No murmurs/extra sounds, No rub, No systolic murmur, No S3, No S4, No other Gastrointestinal: soft, nl liver, spleen, non-tender Musculoskeletal: nl extremities to inspection Extremities: normal pulses; No calf tenderness, No cyanosis, No clubbing, No palpable cord, No other Neurological: [employer] II-XII intact, nl mental status, nl speech Skin: other (some redness with discharge along the surgical incision on right hip) Results Results 24hrs Laboratory Tests Test 11/05/18 19:24 11/05/18 19:35 11/05/18 20:37 11/05/18 22:22 White Blood Count 10.5 Red Blood Count 3.17 L Hemoglobin 8.8 L Hematocrit 28.3 L Mean Corpuscular 89.3 Volume Mean Corpuscular 27.8 L Hemoglobin Mean Corpuscular 31.1 L Hemoglobin Concent Red Cell 14.3 Distribution Width Platelet Count 319 # Mean Platelet 8.9 Volume Immature 1.100 H Granulocytes % Neutrophils % 69.5 Lymphocytes % 19.5 Monocytes % 8.9 Eosinophils % 0.6 Basophils % 0.4 Nucleated Red 0.0 Blood Cells % Immature 0.110 H Granulocytes # Neutrophils # 7.3 Lymphocytes # 2.0 Monocytes # 0.9 Eosinophils # 0.1 Basophils # 0.0 Nucleated Red 0.0 Blood Cells # Prothrombin Time 12.8 Prothrombin Time 1.0 Ratio INR International 0.95 Normalized Ratio Activated 32.[address] Time Sodium Level 140 Potassium Level 4.3 Chloride Level 105 Carbon Dioxide 25 Level Anion Gap 10 Blood Urea 13 Nitrogen Creatinine 0.70 Est Glomerular > 60 Filtrat Rate mL/min Glucose Level 106 Calcium Level 9.1 Total Bilirubin 0.1 L Direct Bilirubin 0.00 Indirect Bilirubin 0.1 Aspartate Amino 21 Transf (AST/SGOT) Alanine 20 Aminotransferase ( ALT/SGPT) Alkaline 102 Phosphatase Troponin I < 0.012 Total Protein 6.8 Albumin 3.9 Globulin 2.90 Albumin/Globulin 1.34 Ratio Lactic Acid Level 1.4 1.1 Bedside Urine pH 5.5 (LAB) Bedside Urine Negative Protein (LAB) Bedside Urine Negative Glucose (UA) Bedside Urine Negative Ketones (LAB) Bedside Urine Trace-intact H Blood Bedside Urine Negative Nitrite (LAB) Bedside Urine 1+ H Leukocyte Esterase (L Test 11/06/18 04:38 White Blood Count 9.1 Red Blood Count 2.91 L Hemoglobin 8.0 L Hematocrit 25.7 L Mean Corpuscular 88.3 Volume Mean Corpuscular 27.5 L Hemoglobin Mean Corpuscular 31.1 L Hemoglobin Concent Red Cell 14.5 Distribution Width Platelet Count 307 Mean Platelet 9.7 Volume Immature 0.800 H Granulocytes % Neutrophils % 59.0 Lymphocytes % 28.5 Monocytes % 9.9 Eosinophils % 1.4 Basophils % 0.4 Nucleated Red 0.2 H Blood Cells % Immature 0.070 H Granulocytes # Neutrophils # 5.4 Lymphocytes # 2.6 Monocytes # 0.9 Eosinophils # 0.1 Basophils # 0.0 Nucleated Red 0.0 Blood Cells # Sodium Level 143 Potassium Level 4.1 Chloride Level 107 Carbon Dioxide 25 Level Anion Gap 11 Blood Urea 13 Nitrogen Creatinine 0.69 Est Glomerular > 60 Filtrat Rate mL/min Glucose Level 102 Calcium Level 8.5 Magnesium Level 2.1 Total Bilirubin 0.1 L Direct Bilirubin 0.00 Indirect Bilirubin 0.1 Aspartate Amino 19 Transf (AST/SGOT) Alanine 14 Aminotransferase ( ALT/SGPT) Alkaline 78 Phosphatase Total Protein 5.9 L Albumin 3.3 Globulin 2.60 Albumin/Globulin 1.26 Ratio Medications Medication Current Medications Cyclobenzaprine HCl (Flexeril) 10 mg QHS PRN PO MUSCLE SPASMS; Start 11/05/18 at 22:00 Lisinopril (Zestril) 5 mg DAILY PO Last administered on 11/06/18at 08:37; Admin Dose 5 MG; Start 11/06/18 at 09:00 Sodium Chloride 1,000 ml @ 75 mls/hr [id number] IV Last administered on 11/06/18at 13:48; Admin Dose 75 MLS/HR; Start 11/06/18 at 00:00 IV Flush (NS 3 ml) 3 ml PER PROTOCOL IV ; Start 11/05/18 at 22:00 Ondansetron HCl (Zofran Inj) 4 mg Q6H PRN IV NAUSEA/VOMITING; Start 11/05/18 at 22:00 Acetaminophen (Tylenol Tab) 650 mg Q6H PRN PO .PAIN 1-3 OR TEMP; Start 11/05/18 at 22:00 Acetaminophen/ Hydrocodone Bitart ([place] (5/325)) 1 tab Q6H PRN PO .MOD PAIN 4- 6 Last administered on 11/06/18at 13:48; Admin Dose 1 TAB; Start 11/05/18 at 22:00 Morphine Sulfate (morphine) 2 mg Q4H PRN IV .SEVERE PAIN 7-10 Last administered on 11/06/18at 00:47; Admin Dose 2 MG; Start 11/05/18 at 22:00 Docusate Sodium (Colace) 100 mg Q12H PRN PO .CONSTIPATION; Start 11/05/18 at 22:00 Bisacodyl (Dulcolax) 5 mg DAILY PRN PO .CONSTIPATION; Start 11/05/18 at 22:00 Vancomycin HCl (Vanco Iv Per Pharmacy) VANCOMYCIN PER PHARMACY PER PROTOCOL XX ; Start 11/05/18 at 22:00 Piperacillin Sod/ Tazobactam Sod 100 ml @ 200 mls/hr Q8 IVPB Last administered on 11/06/18at 13:48; Admin Dose 200 MLS/HR; Start 11/06/18 at 06:00 Vancomycin HCl 250 ml @ 125 mls/hr Q24H IVPB ; Start 11/06/18 at 18:00 BELGICA AGUILAR MD Nov 06, 2018 14:31
[2018-11-06 14:47] VITALS: BP 115/68; PULSE 76; RESP 18
[2018-11-06] MEDS ORDERED: VANCOMYCIN 1 GM 250 ML IVPB SCH (18:00)
[2018-11-06 20:55] VITALS: BP 110/62; PULSE 77; RESP 20
[2018-11-07 02:14] VITALS: BP 108/71; PULSE 75; RESP 17
[2018-11-07] MEDS: SOD CHLORIDE 0.9% 1,000 ML IV SCH ×2 (02:40→06:15)
[2018-11-07] MEDS: PIPER-TAZO 3.375 GM IV (PMX) 100 ML IVPB SCH (06:05)
--- NOTE | 2018-11-07 06:11 | PN ---
Date/Time of Note Date/Time of Note DATE: 11/07/18 TIME: 06:10 Subjective Awake and alert this morning. No pain around the wound. With regards to any drainage, there has been none. She is very comfortable. Objective Vitals Vital Signs Date Temp Pulse Resp B/P (MAP) Pulse Ox O2 O2 Flow FiO2 Time Delivery Rate 11/07/18 98.6 75 17 108/71 95 02:14 (83) 11/06/18 Room Air 14:47 Intake and Output 11/06/18 11/06/18 11/07/18 1515:00 23:00 07:00 IntakeIntake Total 1540 ml 565 ml 300 ml BalanceBalance 1540 ml 565 ml 300 ml Her wound is now clean and dry. An ABD is in place. It has been changed with Betadine. She is neurologically intact. There are no signs of DVT. Results Result Diagram: 11/07/18 0439 11/06/18 0438 Medications Medications Current Medications Cyclobenzaprine HCl (Flexeril) 10 mg QHS PRN PO MUSCLE SPASMS; Start 11/05/18 at 22:00 Lisinopril (Zestril) 5 mg DAILY PO Last administered on 11/06/18at 08:37; Admin Dose 5 MG; Start 11/06/18 at 09:00 Sodium Chloride 1,000 ml @ 75 mls/hr [id number] IV Last administered on 11/06/18at 13:48; Admin Dose 75 MLS/HR; Start 11/06/18 at 00:00 IV Flush (NS 3 ml) 3 ml PER PROTOCOL IV ; Start 11/05/18 at 22:00 Ondansetron HCl (Zofran Inj) 4 mg Q6H PRN IV NAUSEA/VOMITING; Start 11/05/18 at 22:00 Acetaminophen (Tylenol Tab) 650 mg Q6H PRN PO .PAIN 1-3 OR TEMP Last administered on 11/06/18at 22:06; Admin Dose 650 MG; Start 11/05/18 at 22:00 Acetaminophen/ Hydrocodone Bitart ([place] (5/325)) 1 tab Q6H PRN PO .MOD PAIN 4- 6 Last administered on 11/06/18at 13:48; Admin Dose 1 TAB; Start 11/05/18 at 2 2:00 Morphine Sulfate (morphine) 2 mg Q4H PRN IV .SEVERE PAIN 7-10 Last administered on 11/06/18at 00:47; Admin Dose 2 MG; Start 11/05/18 at 22:00 Docusate Sodium (Colace) 100 mg Q12H PRN PO .CONSTIPATION; Start 11/05/18 at 22:00 Bisacodyl (Dulcolax) 5 mg DAILY PRN PO .CONSTIPATION Last administered on 11/06/18at 18:18; Admin Dose 5 MG; Start 11/05/18 at 22:00 Vancomycin HCl (Vanco Iv Per Pharmacy) VANCOMYCIN PER PHARMACY PER PROTOCOL XX ; Start 11/05/18 at 22:00 Piperacillin Sod/ Tazobactam Sod 100 ml @ 200 mls/hr Q8 IVPB Last administered on 11/07/18at 06:05; Admin Dose 200 MLS/HR; Start 11/06/18 at 06:00 Vancomycin HCl 250 ml @ 125 mls/hr Q24H IVPB Last administered on 11/06/18at 18:09; Admin Dose 125 MLS/HR; Start 11/06/18 at 18:00 Enoxaparin Sodium (Lovenox) 40 mg DAILY SC ; Start 11/07/18 at 09:00 VTE Prophylaxis Risk score (from Nsg)>0 risk: 3 SCD applied (from Nsg): Yes Lines/Catheters IV Catheter Type: Saline Lock Santana in Place: No Assessment/Plan Assessment/Plan Assessment: Status post superficial wound infection Plan: I have recommended that she begin a course of Keflex 500 mg p.o. 3 times daily for the next week. She will follow-up in the office on Saturday in 72 hours. In addition, I discussed with her that she needs to do a twice daily dressing change and maintain an ABD pad in the abdominal fold at all times until the wound heals. She verbalized a good understanding of the situation. SANDY SOLANO MD Nov 07, 2018 06:11
--- NOTE | 2018-11-07 06:48 | PDOCDIS ---
Discharge Instructions DIAGNOSIS Discharge Diagnosis Superficial wound infection CONDITION [id number] Patient Condition: [id number] Good HOME CARE INSTRUCTIONS: [id number] Diet Instructions: [id number] Regular ACTIVITY: [id number] Activity Restrictions: [id number] Slowly Increase Activity [id number] Bathing Restrictions: [id number] Shower FOLLOW UP/APPOINTMENTS Follow-up Plan November 10, 2018 in the office OTHER ORDERS: Other Orders: She is to do daily dressing changes with a ABD pad for protection of the healing wound in her abdominal fold. In addition, she will be taking Keflex 500 mg p.o. 3 times daily for the next 2 weeks until the wound heals. SCHOOL/WORK RELEASE May return to School/Work with: With Restrictions School/Work Release Comment: Ambulation as tolerated SANDY SOLANO MD Nov 07, 2018 06:48
[2018-11-07 07:45] VITALS: BP 127/65; PULSE 65; RESP 18
[2018-11-07] MEDS: LISINOPRIL 5 MG TAB PO SCH (08:28)
[2018-11-07] MEDS ORDERED: ENOXAPARIN 40 MG/0.4 ML SYG SC SCH (09:00)
[2018-11-07] MEDS: HYDROCODONE/APAP (5/325) TAB PO PRN (11:55)
[2018-11-07] MEDS ORDERED: CEPHALEXIN 500 MG CAP PO SCH (12:00)
[2018-11-07 14:25] VITALS: BP 130/68; PULSE 70; RESP 18
[2018-11-07] MEDS ORDERED: CEPH500C PO (16:41)
--- NOTE | 2018-11-07 16:45 | DS ---
Date/Time of Note Date/Time of Note DATE: 11/07/18 TIME: 16:42 Discharge Summary Admission/Discharge Info Admit Date/Time Nov 05, 2018 at 21:20 Discharge Date/Time Discharge Diagnosis 1. Right hip surgical wound infection, stable, on keflex and follow up with torri de souza 2. s/p right total hip replacement on 10/28/2018 3. HTN, controlled 4. Obesity Patient Condition: Stable Hospital Course This is a 63-year-old female status post right total hip arthroplasty on 10/28/2018 who presented to the emergency department complaining of right hip incision pain and drainage times 3 days. Patient reports that she started noticing yellow discharge come out of her right hip incision. She also noticed being mildly painful to touch and redness. She denies any fevers. Denies any chest pain nausea vomiting or diarrhea. She denies any worsening of her right hip pain aside from her normal postop pain. There is redness, swelling and discharge from the surgical incision. Patient is treated with vancomycin and zosyn. Symptoms improved. Patient is discharged on keflex and she will follow up with PCP and surgeon in office. Home Meds Active Scripts Cephalexin* (Cephalexin*) 500 Mg Capsule, 500 MG PO Q6 for 10 Days, CAP Prov:BELGICA AGUILAR MD 11/07/18 Reported Medications Cyclobenzaprine Hcl* (Cyclobenzaprine Hcl*) 10 Mg Tablet, 10 MG PO QHS PRN for MUSCLE SPASMS, #60 TAB 10/28/18 Diclofenac Sodium* (Diclofenac Sodium*) 75 Mg Tablet.dr, 75 MG PO BID, #60 TAB 10/28/18 Lisinopril* (Lisinopril*) 5 Mg Tablet, 5 MG PO DAILY, #30 TAB 10/28/18 Discontinued Reported Medications Acetaminophen* (Acetaminophen*) 500 MG Extra Strength Tablet, 500 MG PO DAILY PRN for PAIN AND OR ELEVATED TEMP, TAB 10/28/18 Follow-up Plan November 10, 2018 in the office Primary Care Provider Not On Staff Doctor Pending Labs Laboratory Tests Test 11/07/18 04:38 11/07/18 04:39 Iron Level 40 ug/dl (35-150) Total Iron Binding Capacity 325 ug/dl (241-421) Percent Iron Saturation 12 % SAT (22-52) White Blood Count 7.2 10^3/ul (4.8-10.8) Red Blood Count 3.12 10^6/ul (4.20-5.40) Hemoglobin 8.5 g/dl (12.0-16.0) Hematocrit 28.0 % (37.0-47.0) Mean Corpuscular Volume 89.7 fl (82.0-101.0) Mean Corpuscular Hemoglobin 27.2 pg (29.0-33.0) Mean Corpuscular 30.4 g/dl (32.0-37.0) Hemoglobin Concent Red Cell Distribution Width 14.4 % (11.5-14.5) Platelet Count 340 10^3/UL (140-415) Mean Platelet Volume 9.5 fl (7.4-10.4) Immature Granulocytes % 0.700 % (0.001-0.429) Neutrophils % 51.7 % (39.0-77.0) Lymphocytes % 36.3 % (15.0-51.0) Monocytes % 9.0 % (0.0-11.0) Eosinophils % 1.7 % (0.0-7.0) Basophils % 0.6 % (0.0-2.0) Nucleated Red Blood Cells % 0.0 /100WBC (0.0-0.0) Immature Granulocytes # 0.050 10^3/ul (0.0-0.031) Neutrophils # 3.7 10^3/ul (1.6-7.5) Lymphocytes # 2.6 10^3/ul (0.8-2.9) Monocytes # 0.7 10^3/ul (0.3-0.9) Eosinophils # 0.1 10^3/ul (0.0-0.5) Basophils # 0.0 10^3/ul (0.0-0.1) Nucleated Red Blood Cells # 0.0 10^3/ul (0.0-0.0) Ferritin 52.7 ng/ml (11.1-264.0) BELGICA AGUILAR MD Nov 07, 2018 16:45
== END 2018-11-07 16:50 | disposition home or self-care (01) | DRG 863 ==
LOC: E/R 16:20 → MS1 21:20
PROVIDERS: ADMIT Family Medicine; ATTEND Internal Medicine
DX: T81.49XA Infection following a procedure, other surgical site, initial encounter (principal); N30.00 Acute cystitis without hematuria; E66.9 Obesity, unspecified; Z68.38 Body mass index [BMI] 38.0-38.9, adult; M19.90 Unspecified osteoarthritis, unspecified site; I10 Essential (primary) hypertension; D64.9 Anemia, unspecified; Z96.641 Presence of right artificial hip joint
CPT/HCPCS: 36415; 71045; 73510; 80053; 81003; 82728; 83540; 83605; 83735; 84484; 85025; 85610; 85730; 87040; 87070; 87081; 87086; 93005; 96374; 97116; 97161; J0696; J1650; J2270; J2543; J3370; J7030